=== PATIENT | male | born 1940 | race Caucasian/White ===

== ENCOUNTER → 2019-06-01 14:01 | Outpatient (CLI) | payer MEDICARE, SELFPAY ==
--- NOTE | 2019-06-01 | PROSBIL_PTH ---
PATIENT: NISSA POLANCO LOC: [facility] U#:[id number] AGE/SX: 84/M ROOM: RE06/01/[address]: Dr. Lionel Daly MD : 1940 BED: DIS: SPEC #: [id number] RECD: 06/02/19 10:30 STATUS: SANJUANA KIRILL #: [id number] JEAN: 06/01/19 00:[address]: Lionel Daly DEPT: SURGICAL PATHOLOGY RECD BY: Helder Akins Tissues: A - PROSTATE RIGHT B - PROSTATE RIGHT C - PROSTATE RIGHT D - PROSTATE LEFT E - PROSTATE LEFT F - PROSTATE LEFT Procedures: PROSTATE BX HEADER OPERATION: Prostate biopsy PRE-OP DIAGNOSIS: Elevated PSA TISSUE SUBMITTED: A - Right apex, B - Right mid, C - Right base, D - Left apex, E - Left mid, F - Left base MICROSCOPIC DIAGNOSIS A. Right prostate, apex, core biopsy: Adenocarcinoma. [place] grade: 6 (3+3) Cores involved: 1 out of 1 Tissue involved: <1% Greatest tumor length: 0.7 mm See comment. B. Right prostate, mid, core biopsy: Focal chronic inflammation. C. Right prostate, base, core biopsy: Minimal chronic inflammation. D. Left prostate, apex, core biopsy: Adenocarcinoma. [place] grade: 6 (3+3) Cores involved: 1 out of 2 Tissue involved: 2% Greatest tumor length: 1.8mm See comment. E. Left prostate, mid, core biopsy: Adenocarcinoma. [place] grade: 6 (3+3) Cores involved: 1 out of 2 Tissue involved: <1% Greatest tumor length: 0.5 mm Focal high-grade prostatic intraepithelial neoplasia (HGPIN). See comment. F. Left prostate, base, core biopsy: Adenocarcinoma. [place] grade: 6 (3+3) Cores involved: 1 out of 2 Tissue involved: 2% Greatest tumor length: 1.5 mm See comment. AM:kalin 06/05/19 COMMENT A, D, E & F - Immunohistochemistry ([id number]) supports the above diagnosis. Case has been reviewed in consultation with Dr. Barraza who concurs with the above diagnosis. IDC:SJ MICROSCOPIC DESCRIPTION Slides are reviewed. GROSS DESCRIPTION A - Received is one container designated prostate, right apex. The specimen consists of one elongated fragment of light oliveira-white soft tissue measuring 1.5 cm in length and 0.1 cm in diameter. The specimen is totally submitted in one cassette. B - Received is one container designated prostate, right mid. The specimen consists of two elongated fragments of light oliveira-white soft tissue each measuring 1.5 cm in length and 0.1 cm in diameter. The specimen is totally submitted in one cassette. C - Received is one container designated prostate, right base. The specimen consists of two elongated fragments of light oliveira-white soft tissue each measuring 1.5 cm in length and 0.1 cm in diameter. The specimen is totally submitted in one cassette. D - Received is one container designated prostate, left apex. The specimen consists of one elongated fragment of light oliveira-white soft tissue measuring 0.7 cm in length and 0.1 cm in diameter. The specimen is totally submitted in one cassette. E - Received is one container designated prostate, left mid. The specimen consists of two elongated fragments of light oliveira-white soft tissue each measuring 1.2 cm in length and 0.1 cm in diameter. The specimen is totally submitted in one cassette. F - Received is one container designated prostate, left base. The specimen consists of two elongated fragments of light oliveira-white soft tissue measuring 0.7 and 1 cm in length and 0.1 cm in diameter. The specimen is totally submitted in one cassette. / SJ:rg 06/02/19 TC:0 CPT: G0146
--- NOTE | 2019-06-01 | IMM_PTH ---
PATIENT: NISSA POLANCO LOC: [facility] U#:[id number] AGE/SX: 84/M ROOM: RE06/01/[address]: Dr. Lionel Daly MD : 1940 BED: DIS: SPEC #: [id number] RECD: 06/05/19 11:22 STATUS: SANJUANA REMoe #: [id number] JEAN: 06/01/19 00:[address]: Lionel Daly DEPT: IMMUNOHISTOCHEMISTRY RECD BY: Jen Lara Tissues: A - PROSTATE RIGHT D - PROSTATE LEFT E - PROSTATE LEFT F - PROSTATE LEFT Procedures: 34BE12 (add) P40 (add) 34BE12 (initial) PHYSICIAN & INSTITUTION [place] [id number] SPECIMEN INFORMATION: Tissue Source: A - Right prostate, apex, D - Left prostate, apex, E - Left prostate, mid, F - Left prostate, base Clinical Info: Elevated PSA Specimen Number: [id number] A, D, E & F CPT code: 92858, 06618 x7 METHODOLOGY: Deparaffinized sections of prefer/formalin-fixed tissue or PAP/DQ stained slides are incubated with monoclonal/polyclonal antibodies/oligonucleotide probes. Localization is made via biotin free immunoperoxidase method. Appropriate controls are performed and reacted as expected. Results on target cell population are indicated in the following table: RESULTS: ANTIBODY / CLONE RESULT Block A 34BE12 (34BE12) negative P40 (BC28) negative Block D 34BE12 (34BE12) negative P40 (BC28) negative Block E 34BE12 (34BE12) negative P40 (BC28) negative Block F 34BE12 (34BE12) negative P40 (BC28) negative These tests were developed and their performance characteristics determined by [facility]. They may not have been cleared or approved by the U.S. Food and Drug Administration. The FDA has determined that such clearance or approval is not necessary. The above immunohistochemical/dualISH markers are ordered and reviewed by the Pathologist. INTERPRETATION: A. Right prostate, apex, core biopsy: Adenocarcinoma. D. Left prostate, apex, core biopsy: Adenocarcinoma. E. Left prostate, mid, core biopsy: Adenocarcinoma. F. Left prostate, base, core biopsy: Adenocarcinoma. AM:kalin 06/06/19
== END ==
PROVIDERS: Referring Provider Urology; Visit Provider Urology
DX: R97.20 Elevated prostate specific antigen [PSA] (principal)
CPT/HCPCS: 88305; 88341; 88342; G0416

== ENCOUNTER → 2019-12-04 10:14 | Outpatient (CLI) | payer MEDICARE, SELFPAY | PROVIDERS: PCP Family Medicine; Referring Provider Urology; Visit Provider Urology | DX: C61 Malignant neoplasm of prostate (principal) | CPT/HCPCS: 36415; 84153 ==

== ENCOUNTER → 2020-03-28 10:48 | Outpatient (CLI) | payer MEDICARE, SELFPAY | PROVIDERS: PCP Family Medicine; Referring Provider Family Medicine; Visit Provider Urology | DX: C61 Malignant neoplasm of prostate (principal) | CPT/HCPCS: 36415; 84153 ==

== ENCOUNTER 2020-04-29 07:07 | Outpatient (RCR) | payer MEDICARE, SELFPAY | END 2020-04-29 23:59 | LOC: IMMUN 07:07 | PROVIDERS: PCP Family Medicine; Visit Provider Family Medicine | DX: Z23 Encounter for immunization (principal) | CPT/HCPCS: 0011A; 0012A ==

== ENCOUNTER → 2020-10-02 10:36 | Outpatient (CLI) | payer MEDICARE, SELFPAY | PROVIDERS: PCP Family Medicine; Referring Provider Urology; Visit Provider Urology | DX: C61 Malignant neoplasm of prostate (principal) | CPT/HCPCS: 36415; 84153 ==

== ENCOUNTER 2021-06-02 16:36 | Outpatient (CLI) | payer MEDICARE, SELFPAY ==
--- NOTE | 2021-06-02 | IMM_PTH ---
PATIENT: NISSA POLANCO LOC: [facility] U#:[id number] AGE/SX: 81/M ROOM: RE06/02/[address]: Dr. Lionel Daly MD : 1940 BED: DIS: 06/02/2021 SPEC #: [id number] RECD: 06/04/21 13:02 STATUS: SANJUANA REMoe #: [id number] JEAN: 06/02/21 00:[address]: Lionel Daly DEPT: IMMUNOHISTOCHEMISTRY RECD BY: Jen Lara ENTERED: 06/04/21 13:04 SP TYPE: IMMUNO OTHR DR: Dr. Juancho Barreto, DO Tissues: D - PROSTATE LEFT E - PROSTATE LEFT Procedures: 34BE12 (add) P40 (add) 34BE12 (initial) PHYSICIAN & INSTITUTION [place] [address] SPECIMEN INFORMATION: Tissue Source: D - Left prostate, apex, core biopsy, E - Left prostate, mid, core biopsy Clinical Info: Elevated PSA Specimen Number: [id number] D & E CPT code: 19785, 87900 x3 METHODOLOGY: Deparaffinized sections of prefer/formalin-fixed tissue or PAP/DQ stained slides are incubated with monoclonal/polyclonal antibodies/oligonucleotide probes. Localization is made via biotin free immunoperoxidase method. Appropriate controls are performed and reacted as expected. Results on target cell population are indicated in the following table: RESULTS: ANTIBODY / CLONE RESULT Block D P40 (BC28) negative 34BE12 (34BE12) negative Block E P40 (BC28) negative 34BE12 (34BE12) negative These tests were developed and their performance characteristics determined by [facility]. They may not have been cleared or approved by the U.S. Food and Drug Administration. The FDA has determined that such clearance or approval is not necessary. The above immunohistochemical/dualISH markers are ordered and reviewed by the Pathologist. INTERPRETATION: D. Left prostate, apex, core biopsy: Adenocarcinoma. E. Left prostate, mid, core biopsy: Adenocarcinoma. HAYLEY:kalin 06/05/2021
--- NOTE | 2021-06-02 08:00 | PROSBIL_PTH ---
PATIENT: NISSA POLANCO LOC: [facility] U#:[id number] AGE/SX: 81/M ROOM: RE06/02/[address]: Dr. Lionel Daly MD : 1940 BED: DIS: 06/02/2021 SPEC #: [id number] RECD: 06/02/21 16:34 STATUS: SANJUANA REMoe #: [id number] JEAN: 06/02/21 08:[address]: Lionel Daly DEPT: SURGICAL PATHOLOGY RECD BY: Nelida Restrepo ENTERED: 06/03/21 08:13 SP TYPE: PROST BX ANTON DR: Dr. Juancho Barreto DO Tissues: A - PROSTATE RIGHT B - PROSTATE RIGHT C - PROSTATE RIGHT D - PROSTATE LEFT E - PROSTATE LEFT F - PROSTATE LEFT Procedures: PROSTATE BX HEADER OPERATION: Prostate biopsy PRE-OP DIAGNOSIS: R97.20 TISSUE SUBMITTED: A - Right apex, B - Right mid, C - Right base, D - Left apex, E - Left mid, F - Left base MICROSCOPIC DIAGNOSIS A. Right prostate, apex, core biopsy: Prostatic tissue, negative for malignancy. Focal chronic inflammation. B. Right prostate, mid, core biopsy: Prostatic tissue, negative for malignancy. Focal chronic inflammation. C. Right prostate, base, core biopsy: Prostatic tissue, negative for malignancy. D. Left prostate, apex, core biopsy: Prostatic adenocarcinoma. [place] grade: 3+4=7 Number of cores involved: 1/1 Proportion of tissue involved: ~60% Perineural invasion: Not identified. Greatest tumor length: 0.7 cm, discontinuous. Focal chronic inflammation. See comment. E. Left prostate, mid, core biopsy: Prostatic adenocarcinoma. Francis grade: 3+3=6 Number of cores involved: 1/1 Proportion of tissue involved: ~25% Perineural invasion: Not identified. Greatest tumor length: 0.6 cm, discontinuous Focal moderate chronic inflammation. See comment. F. Left prostate, base, core biopsy: Focal high-grade prostatic intraepithelial neoplasia (HGPIN). Focal chronic inflammation. SJ:kalin 06/04/2021 COMMENT D & E. Immunohistochemistry ([id number]) supports the above diagnosis. Please make reference to previous specimen ([id number]) right prostate, apex and left prostate, apex, mid and base, core biopsies with diagnosis of adenocarcinoma. Case has been reviewed in consultation with Dr. Alarcon who concurs with the above diagnosis. IDC:AM MICROSCOPIC DESCRIPTION Slides are reviewed. GROSS DESCRIPTION A - Received is one container designated prostate, right apex. The specimen consists of one elongated fragment of light oliveira-white soft tissue measuring 1.0 cm in length and 0.1 cm in diameter. The specimen is totally submitted in one cassette. B - Received is one container designated prostate, right mid. The specimen consists of one elongated fragment of light oliveira-white soft tissue measuring 1.2 cm in length and 0.1 cm in diameter. The specimen is totally submitted in one cassette. C - Received is one container designated prostate, right base. The specimen consists of one elongated fragment of light oliveira-white soft tissue measuring 1.2 cm in length and 0.1 cm in diameter. The specimen is totally submitted in one cassette. D - Received is one container designated prostate, left apex. The specimen consists of one elongated fragment of light oliveira-white soft tissue measuring 1 cm in length and 0.1 cm in diameter. The specimen is totally submitted in one cassette. E - Received is one container designated prostate, left mid. The specimen consists of one elongated fragment of light oliveira-white soft tissue measuring 1.5 cm in length and 0.1 cm in diameter. The specimen is totally submitted in one cassette. F - Received is one container designated prostate, left base. The specimen consists of one elongated fragment of light oliveira-white soft tissue measuring 1.2 cm in length and 0.1 cm in diameter. The specimen is totally submitted in one cassette. / SJ:rg 06/03/2021 TC:0 CPT: G0146
== END 2021-06-02 23:59 | disposition home or self-care (01) ==
LOC: LABSPEC 16:37
PROVIDERS: PCP Family Medicine; Visit Provider Urology
DX: C61 Malignant neoplasm of prostate (principal)
CPT/HCPCS: 88305; 88341; 88342; G0416

== ENCOUNTER 2021-08-27 09:59 | Day surgery (SDC) | payer MEDICARE, SELFPAY ==
[2021-08-27] VITALS (7 sets, daily range): BP systolic 117–152; BP diastolic 78–89; PULSE 61–79; RESP 16; TEMP 36.2–36.6; O2SAT 92–97; BMI 24.5
[2021-08-27] MEDS: Lactated Ringers 1,000 ML 15 ML IV (10:10)
[2021-08-27] MEDS: Cefazolin 2 GM in 0.9% Normal Saline 100 ML IV (12:24)
--- NOTE | 2021-08-27 12:52 | PCM.HP.STD ---
HPI - General HPI Narrative NISSA POLANCO, is a 81 M who presents for placement of gold markers and spacer gel for planning prostate cancer treatment PFSH Medical History Arthritis Benign prostatic hyperplasia with lower urinary tract symptoms Elevated prostate specific antigen (PSA) Frequency of micturition History of needle biopsy of prostate with negative result History of stress test Hyperlipidemia Hypertension Malignant neoplasm Nocturia Non-smoker Other amnesia Other and unspecified postprocedural erectile dysfunction Poor urinary stream Prostate disease Restless legs Secondary osteoarthritis, unspecified site Shortness of breath on exertion Unspecified hearing loss, unspecified ear Unspecified urinary incontinence Unspecified visual loss Wears glasses Wears hearing aid Home Medications amlodipine 2.5 mg tablet 2.5 mg PO QHS 07/04/21 [History Last Taken Unknown] aspirin 81 mg tablet,delayed release 81 mg PO DAILY 07/04/21 [History Last Taken 08/22/21] atorvastatin 10 mg tablet (Lipitor) 10 mg PO DAILY 07/04/21 [History Last Taken Unknown] ibuprofen 200 mg capsule 200 mg PO Q6H PRN Pain 07/04/21 [History Last Taken Unknown] ciprofloxacin HCl 500 mg tablet (Cipro) 500 mg PO BID #14 tabs 08/27/21 [Rx Last Taken Unknown] Allergy/AdvReac Type Severity Reaction Status Date / Time mercury (elemental) Allergy ? Verified 08/27/21 10:35 Family History Brother Cancer prostate Other Myocardial infarction Surgical History H/O shoulder surgery History of total right knee replacement Hx of colonoscopy Social History Smoking Status: Never smoker ROS Constitutional Constitutional: Denies chills, fever(s) or malaise Eyes Eyes: Denies blurry vision or change in vision ENT HEENT: Reports none Cardiovascular Cardiovascular: Denies chest pain or palpitations Respiratory/Chest Respiratory/Chest: Denies cough or shortness of breath with exertion Gastrointestinal Gastrointestinal: Denies abdominal pain, constipation or diarrhea Musculoskeletal Musculoskeletal: Denies back pain, joint stiffness or joint swelling Integumentary Integumentary: Denies dry skin, jaundice, lesions or rash Neurologic Neurologic: Denies confusion, syncope or weakness Psychiatric Psychiatric: Reports none; Denies anxiety or depression Endocrine Endocrinology: Denies excessive sweating, fatigue or flushing Hematologic/Lymphatic Hematologic/Lymphatic: Denies anemia, easy bleeding or easy bruising Vital Signs Vital Signs Vital Signs: 08/27/21 10:36 08/27/21 10:36 Temperature 97.8 F Temperature Source Temporal Pulse Rate 79 Respiratory Rate 16 Respiratory Pattern Normal Blood Pressure 117/84 H Blood Pressure Mean 95 Blood Pressure Source Monitor Blood Pressure Position Semi-Fowlers Blood Pressure Location Left Arm Pulse Ox 94 Oxygen Delivery Method Room Air Weight Weight: 77.564 kg Body Mass Index (BMI) 24.5 Physical Exam Const alert and oriented x3 General Appearance: cooperative HEENT normocephalic, head/scalp atraumatic, EAC's normal and TM's normal bilaterally Eyes PERRL and EOMs intact bilaterally Pupil: sluggish Neck no lymphadenopathy, supple and no JVD General: trachea midline Lymph Lymphatic: no lymphadenopathy noted, lymphedema and lymphadenopathy Resp normal respiratory effort, normal air movement and clear to auscultation bilaterally Cardio regular rate, regular rhythm and peripheral pulses 2+ throughout GI soft to palpation, non-tender and non-distended Extremity normal capillary refill and no clubbing, cyanosis or edema General Extremity: no tenderness to palpation of joints or extremities Skin no rashes or lesions noted General Skin Exam: turgor normal Lesions: no lesions Rashes: no rashes Neuro CN's II-XII intact bilaterally Speech: speech normal Motor Exam: strength 5/5 throughout; Negative for general weakness Psych thought process normal, cooperative and affect normal Appearance: appropriate Assessment & Plan Assessment/Plan (1) Cancer of prostate with intermediate recurrence risk (stage T2b-c or Francis 7 or PSA 10-20): PLAN: Plan prostate cancer
--- NOTE | 2021-08-27 12:53 | DCINST_ITS ---
Discharge Instructions Diet Discharge Diet: No restrictions Follow Up Care Please Follow Up With: Lionel Daly MD Test Results: Test results from this visit will be discussed in further detail at your follow- up appointment, if applicable. Discharge Plan Admission Primary Reason for Your Visit: gold markers and spacer gel Attending Provider: Lionel Daly Primary Care Provider: Juancho Barreto Discharge Orders/Prescriptions Prescriptions: New ciprofloxacin HCl [Cipro] 500 mg tablet 500 mg PO BID Qty: 14 0RF No Action amlodipine 2.5 mg tablet 2.5 mg PO QHS aspirin 81 mg tablet,delayed release (DR/EC) 81 mg PO DAILY ibuprofen 200 mg capsule 200 mg PO Q6H PRN (Reason: Pain) atorvastatin [Lipitor] 10 mg tablet 10 mg PO DAILY Referrals / Follow Up: Juancho Barreto DO [Primary Care Provider] - Lionel Daly MD [STAFF PHYSICIAN] - Disposition Disposition (needs filled in before D/C Order can be placed): Home, Self Care
--- NOTE | 2021-08-27 12:53 | OP.PCM_ITS ---
Report of Operation Date of Procedure: 08/27/21 Pre-Operative Diagnosis: prostate cancer Post-Operative Diagnosis: same Surgery/Procedure Performed:: gold markers and placement of spacer gel Description of Surgical Findings:: Patient was taken back to the operating room after smooth induction of anesthesia he was placed supine on the table. The genitals and perineum were prepped and draped in usual sterile fashion. I then introduced a biplanar ultrasound probe into the rectum and performed ultrasonography and identified the Denonvilliers' fascia the prostate mid base and apex and seminal vesicles. The spacer gel mix was then prepared on the back table per manufactures instruction. Under ultrasound guidance in the midline perineum a bevel needle down we advanced through the perineum below the prostate into the space of Denonvilliers' fascia. This space which could be identified by ultrasound with a bright white layer between the prostate and the rectum. I then injected a puff of normal saline to identify the space further. After I confirmed that the needle was in the correct space in the mid prostate and the space of Denonvilliers' fascia between the rectum and the prostate. Then over the course of 15 seconds the gel matrix was injected slowly there was nice separation between the prostate and the rectum at the gel matrix was injected. The position of the gel matrix was confirmed by ultrasound. Then the injection needle was removed intact. The penis and testicles were prepped and draped in usual sterile fashion, ultrasound probe was placed into the rectum and biplanar ultrasound was performed on the prostate. Identified the base mid and apex of the prostate identified the transition zone prostate. Then using a needle the first tire service technician was placed into the right base of the prostate, the second tire service technician was placed in the left base of the prostate, and the third core marker was placed in the right apex of the prostate after all 3 markers were placed the placement of the markers were confirmed by ultrasonography. Patient's perineum was cleaned patient was taken out of stirrups and then taken back to the PACU in good condition. Surgeon: Lionel Daly Type of Anesthesia: General
== END 2021-08-27 14:21 | disposition home or self-care (01) ==
LOC: SDC 10:05 → AC 10:07
PROVIDERS: PCP Family Medicine; Referring Provider Urology; Visit Provider Urology
PROC: (CPT 55874; principal; 2021-08-27 11:45)
DX: C61 Malignant neoplasm of prostate (principal); E78.5 Hyperlipidemia, unspecified; I10 Essential (primary) hypertension; N40.1 Benign prostatic hyperplasia with lower urinary tract symptoms; Z80.59 Family history of malignant neoplasm of other urinary tract organ
CPT/HCPCS: 55876; J7120; J2405

== ENCOUNTER → 2021-09-05 | Outpatient (CLI) | payer MEDICARE, SELFPAY ==
--- NOTE | 2021-09-05 18:05 | MRI_ITS ---
STUDY: MR PELVIS WITH T WITHOUT CONTRAST REASON FOR EXAM: Male, 81 years old. eval extent of disease, planning for XRT ELEVATED PROSTATE SPECIFIC ANTIGEN TECHNIQUE: Standardized fat and water weighted pulse sequences were obtained in all 3 orthogonal planes, pre-and post contrast administration. With without 15mL DOTAREM contrast material was administered intravenously for the contrast portion of the examination. COMPARISON: None. FINDINGS: Normal urinary bladder. Normal visualized colon. Prostate gland: The anterior fibromuscular stroma and central zone appear intact. The central gland demonstrates heterogeneous signal characteristics. This suggests benign prostatic hypertrophy. Rectum is unremarkable. Levator ani muscle is not disrupted. The distal urethra is surrounded by the low T2 signal intensity muscle which is the external urethral sphincter as noted on the coronal images. The penile bulb is embraced by an intact inferomedial levator ani muscle. No areas of abnormal enhancement. Normal visualized neurovascular bundles. There is a focus of low T2 signal in the left peripheral zone measuring 9 x 10 mm. Series 6 image 18. This area demonstrates diffuse enhancement. Series 12 image 18. Increased diffusion signal and low ADC signal in this area. SpaceOAR System is noted between the rectum and prostate gland. It has high T2 signal and a gel like appearance. There is no extra capsular extension. There are no abnormal lymph nodes. There is no pelvic fluid. There is no pelvic mass lesion or lymphadenopathy. Normal visualized pelvic arteries. Normal osseous structures. Normal abdominal wall. MRI/Pelvis W/WO Contrast IMPRESSION: Left left peripheral zone lesion. Assessment: PIRADS 4 - High. Clinically significant cancer is likely to be present. Electronically Signed: Dougie Brown MD at 21:49 EDT ,
[2021-09-05 18:16] LABS: CREATININE FINGERSTICK < 0.9 mg/dL (0.70-1.30); EGFR FINGERSTICK > 60.0000 mL/min (>60)
== END | disposition home or self-care (01) ==
LOC: MRI 17:30
PROVIDERS: PCP Family Medicine; Referring Provider Student in an Organized Health Care Education/Training Program; Visit Provider Student in an Organized Health Care Education/Training Program
DX: C61 Malignant neoplasm of prostate (principal)
CPT/HCPCS: 72197; A9575

== ENCOUNTER → 2024-02-15 | Outpatient (CLI) | payer SELFPAY ==
--- NOTE | 2024-02-15 13:44 | CT_ITS ---
STUDY: CT CHEST WITHOUT CONTRAST REASON FOR EXAM: Male, 83 years old. SOB. History of heart murmur. Fatigue. RADIATION DOSAGE (If Supplied By Facility): CTDIvol = ( 12.19 ) mGy, DLP = ( 463.21 ) mGycm TECHNIQUE: Transaxial imaging was performed without the administration of intravenous contrast material. Cardiac over read examination. Individualized dose optimization techniques were used for this CT. COMPARISON: No relevant priors. FINDINGS: CHEST Mild linear scarring at the lung bases. There is no demonstrated pleural abnormality. There are calcifications of the coronary arteries. Normal mediastinum. Normal hilar regions. Normal unenhanced pulmonary arteries. There is atherosclerotic calcification of the aortic arch with tortuosity and elongation of the aortic arch and descending thoracic aorta. There are degenerative changes of the thoracic spine. There is no demonstrated abnormality of the visualized upper abdomen. CT/Limited Chest CT Cardiac Only IMPRESSION: Coronary artery calcification. Mild linear scarring at the lung bases. Electronically Signed: Ronen Bear MD at 12:15 EST ,
--- NOTE | 2024-02-15 17:33 | CA.SCORE ---
Calcium Scoring Date of Study:: 02/15/24 Indications Indications: Fatigue Coronary Calcium Scoring: High-resolution Computed Tomographic imaging of the chest was performed on [02/15/24 ], with particular attention paid to the coronary arteries. Images from the examination were analyzed for the presence and extent of coronary artery calcification , using coronary calcium quantification software. The patient tolerated the procedure well and there were no complications. The results of the coronary calcification analysis are provided below. Findings Coronary Artery Left Main (LM): 0 Left Anterior Descending (LAD): 697 Left Circumflex (LCX): 61 Right Coronary Artery (RCA): 114 Total Agatston Score: 872 Percentile Rankin-75% Calcium Scoring Interpretation: Different methods to categorize the overall amount of coronary plaque. Overall amount CAC SIS Visual of coronary plaque P1 Mild -100 <2 1-2 vessels with mild amount of plaque P2 Moderate 101-300 3-4 1-2 vessels with moderate amount, 3 vessels with mild amount of plaque P3 Severe 301-999 5-7 3 vessels with moderate amount, 1 vessel with severe amount of plaque P4 Extensive >1000 >8 2-3 vessels with severe amount of plaque Calcium Score: Extensive: 2-3 vessels w/severe amount of plaque Conclusion: Moderate amount of plaque noted in at least 1 vessel
== END | disposition home or self-care (01) ==
LOC: CT 13:43
PROVIDERS: PCP Family Medicine; Referring Provider Internal Medicine Cardiovascular Disease; Visit Provider Internal Medicine Cardiovascular Disease
DX: I10 Essential (primary) hypertension (principal); I35.0 Nonrheumatic aortic (valve) stenosis; R06.02 Shortness of breath; E78.5 Hyperlipidemia, unspecified
CPT/HCPCS: 75571; 76380